=== PATIENT | male | born 1950 | race Caucasian/White ===

== ENCOUNTER → 2019-05-18 | Outpatient (REF) | payer MEDICARE ==
[~2019-05-18] MED LIST: ACET500C PO; AMLO5TAB6 PO; ASPI81TA85 PO; ATOR1TAB21 PO; BENA20TA8 PO; CALC500T60 PO; CHIL5SOL PO; CHLO25TA PO; CIAL5TAB PO; CRES10TA PO; DIGO0.25 PO; DIGO0.253 PO; DILT1CAP6 PO; DULE100A IN; FLOM0.4C39 PO; FLON1SPR; FURO20TA2 PO; LABE300T2 PO; LORATAB PO; METF500T13 PO; METO1TAB33 PO; MM S100C PO; PRAD150C6 PO; PROV108A INH; SILD20TA11 PO; SPIR-10 PO; SYMB16INH INH; TRIA0.1C60 TOP; TRIA1CR80 TOP; VOLT1GEL15 TD
[2019-05-18 15:06] LABS: APPEARANCE, URINE CLEAR (CLEAR); BACTERIA, URINE AUTO NEGATIVE (NEGATIVE); BILIRUBIN, URINE AUTO NEGATIVE (NEGATIVE); BLOOD, URINE BLOOD NEGATIVE (NEGATIVE); COLOR, URINE YELLOW (YELLOW); GLUCOSE, URINE (UA) AUTO NEGATIVE (NEGATIVE); KETONE, URINE AUTO TRACE mg/dL (NEGATIVE); LEUKOCYTE ESTERASE, URINE AUTO NEGATIVE (NEGATIVE); MUCUS, URINE SMALL (NEGATIVE); NITRITE, URINE AUTO NEGATIVE (NEGATIVE); PROTEIN, URINE AUTO NEGATIVE (NEGATIVE); RBC, URINE AUTO 1 /HPF (0-3); SPECIFIC GRAVITY URINE AUTO 1.015 (1.002-1.035); SQUAMOUS EPITHELIAL CELL UR AU 0 /HPF (0-6); UROBILINOGEN, URINE AUTO 0.2 mg/dL (0.0-2.0); WBC, URINE AUTO 1 /HPF (0-3)
== END ==
LOC: M SMT 13:31
PROVIDERS: ATTEND Nurse Practitioner Family
DX: R39.11 Hesitancy of micturition (principal)
CPT/HCPCS: 51798; 81001; 87086; G0463

== ENCOUNTER → 2019-05-29 | Outpatient (CLI) | payer MEDICARE ==
[~2019-05-29] MED LIST changes: +ALBU17IN2 INH; -DIGO0.253 PO; +E-Z-GAS II EFFERVESCENT PACKET (SODIUM BICARB./CITRIC ACID/SIMETHICONE) As Ordered ONE; +E-Z-HD 98% w/w 340GM SUSP BTL As Ordered ONE; +E-Z-PAQUE 96% w/w SUSP 176GM BTL As Ordered ONE; -PROV108A INH
--- NOTE | 2019-05-30 20:10 | REP ---
Examination Requested: Esophagram Barium Swallow Reason For Exam/Comment: Dysphasia Esophagram: The procedure was performed CARISSA Fuentes, under the direct supervision of Dr. Madrid. The images were reviewed with Dr. Madrid. A single PA chest x-ray is submitted as a cytology teacher film. The superior mediastinal structures are midline. The heart size is within normal limits. The lungs are clear. Liquid barium and gas producing granules were given in the erect position as well as liquid barium in the prone oblique position, in order to perform a double contrast esophagram examination. Oral and pharyngeal stages of the examination were unremarkable. Esophageal transport is efficient and there is no esophagitis, stricture, or mucosal ring noted. There is a small hiatal hernia noted. Gastroesophageal reflux was not visualized throughout the course of this exam. Impression: 1. Small hiatal hernia. 0.3 minutes of fluoroscopy time was utilized for this procedure. Some fluoroscopic images are performed with last image hold technology. These images require no additional radiation. Reviewed by CARISSA Valdivia 05/29/2019 03:08 P Electronically Signed by Romulo Madrid MD 05/30/2019 08:02 P
== END ==
LOC: M RAD 09:43
PROVIDERS: ATTEND Nurse Practitioner
DX: R13.10 Dysphagia, unspecified (principal); K44.9 Diaphragmatic hernia without obstruction or gangrene

== ENCOUNTER 2019-06-01 11:29 | Day surgery (SDC) | payer MEDICARE ==
[~2019-06-01] VITALS: Ht 185.4 cm; Wt 96.5 kg
[~2019-06-01 11:29] MED LIST changes: -E-Z-GAS II EFFERVESCENT PACKET (SODIUM BICARB./CITRIC ACID/SIMETHICONE) As Ordered ONE; -E-Z-HD 98% w/w 340GM SUSP BTL As Ordered ONE; -E-Z-PAQUE 96% w/w SUSP 176GM BTL As Ordered ONE; +NS 1,000 ML IV ONE
[2019-06-01] MEDS ORDERED: LIDOCAINE 2% INJ 100 MG/5 ML SDV (FOR ANES.) As Ordered ONE (12:50)
[2019-06-01] MEDS ORDERED: fentaNYL 100 MCG/2 ML INJECTION (J3010) As Ordered ONE (12:50)
[2019-06-01] MEDS ORDERED: PROPOFOL 500 MG/50 ML VIAL As Ordered ONE (12:50)
--- NOTE | 2019-06-01 13:07 | ROOR ---
Patient Name: Jin Negron Procedure Date: 06/01/2019 12:48 PM Date of : 1950 Age: 68 Room: [facility] Gender: Male Note Status: Finalized Procedure: Upper GI endoscopy Indications: Dysphagia Providers: Ignacio Gonzalez Jr, MD Referring MD: JESSE ACOSTA DO Requesting Provider: Medicines: Propofol per Anesthesia Complications: No immediate complications. Procedure: Pre-Anesthesia Assessment: - Prior to the procedure, a History and Physical was performed, and patient medications and allergies were reviewed. The patient is competent. The risks and benefits of the procedure and the sedation options and risks were discussed with the patient. All questions were answered and informed consent was obtained. Patient identification and proposed procedure were verified by the physician and the nurse in the pre-procedure area and in the procedure room. Mental Status Examination: alert and oriented. Airway Examination: normal oropharyngeal airway and neck mobility. Respiratory Examination: clear to auscultation. CV Examination: normal. ASA Grade Assessment: II - A patient with mild systemic disease. After reviewing the risks and benefits, the patient was deemed in satisfactory condition to undergo the procedure. The anesthesia plan was to use moderate sedation / analgesia (conscious sedation). Immediately prior to administration of medications, the patient was re-assessed for adequacy to receive sedatives. The heart rate, respiratory rate, oxygen saturations, blood pressure, adequacy of pulmonary ventilation, and response to care were monitored throughout the procedure. The physical status of the patient was re-assessed after the procedure. The Endoscope was introduced through the mouth, and advanced to the second part of duodenum. The upper GI endoscopy was accomplished without difficulty. The patient tolerated the procedure well. Findings: The upper third of the esophagus, middle third of the esophagus and lower third of the esophagus were normal. Non-severe esophagitis was found at the gastroesophageal junction. Biopsies were taken with a cold forceps for histology. The cardia, gastric fundus and gastric body were normal. A small hiatal hernia was present. Scattered severe inflammation characterized by congestion (edema), erosions, erythema, friability and shallow ulcerations was found in the gastric antrum and in the prepyloric region of the stomach. Biopsies were taken with a cold forceps for histology. Patchy moderately erythematous mucosa and with no stigmata of bleeding was found in the duodenal bulb and in the first portion of the duodenum. The second portion of the duodenum was normal. Impression: - Normal upper third of esophagus, middle third of esophagus and lower third of esophagus. - Non-severe reflux esophagitis. Biopsied. - Normal cardia, gastric fundus and gastric body. - Small hiatal hernia. - Gastritis. Biopsied. - Erythematous duodenopathy. - Normal second portion of the duodenum. Recommendation: - Discharge patient to home (ambulatory). - Return to my office as previously scheduled. Ignacio Gonzalez MD Ignacio Gonzalez Jr, MD 06/01/2019 1:07:21 PM Electronically signed by Ignacio Gonzalez Jr, MD Number of Addenda: 0 Note Initiated On: 06/01/2019 12:48 PM Estimated Blood Loss: Estimated blood loss: none.
[2019-06-01] MEDS ORDERED: PHENYLephrine HCL 500 MCG/5 ML (100MCG/ML) SYRINGE (J2370) As Ordered ONE (13:15)
--- NOTE | 2019-06-01 13:29 | ROOR ---
Patient Name: Jin Negron Procedure Date: 06/01/2019 12:50 PM Date of : 1950 Age: 68 Room: [facility] Gender: Male Note Status: Finalized Procedure: Colonoscopy Indications: High risk colon cancer surveillance: Personal history of colonic polyps Providers: Ignacio Gonzalez Jr, MD Referring MD: JESSE ACOSTA DO Requesting Provider: Medicines: Propofol per Anesthesia Complications: No immediate complications. Procedure: Pre-Anesthesia Assessment: - Prior to the procedure, a History and Physical was performed, and patient medications and allergies were reviewed. The patient is competent. The risks and benefits of the procedure and the sedation options and risks were discussed with the patient. All questions were answered and informed consent was obtained. Patient identification and proposed procedure were verified by the physician and the nurse in the pre-procedure area and in the procedure room. Mental Status Examination: alert and oriented. Airway Examination: normal oropharyngeal airway and neck mobility. Respiratory Examination: clear to auscultation. CV Examination: normal. ASA Grade Assessment: II - A patient with mild systemic disease. After reviewing the risks and benefits, the patient was deemed in satisfactory condition to undergo the procedure. The anesthesia plan was to use moderate sedation / analgesia (conscious sedation). Immediately prior to administration of medications, the patient was re-assessed for adequacy to receive sedatives. The heart rate, respiratory rate, oxygen saturations, blood pressure, adequacy of pulmonary ventilation, and response to care were monitored throughout the procedure. The physical status of the patient was re-assessed after the procedure. The Colonoscope was introduced through the anus and advanced to the cecum, identified by appendiceal orifice and ileocecal valve. The colonoscopy was performed without difficulty. The patient tolerated the procedure well. The quality of the bowel preparation was fair and poor. Findings: Many small and large-mouthed diverticula were found in the sigmoid colon. Non-bleeding external and internal hemorrhoids were found during retroflexion and during endoscopy. The hemorrhoids were Grade II (internal hemorrhoids that prolapse but reduce spontaneously) and Grade III (internal hemorrhoids that prolapse but require manual reduction). The rectum, recto-sigmoid colon, descending colon, transverse colon, ascending colon, cecum and ileocecal valve appeared normal. Impression: - Preparation of the colon was fair. - Preparation of the colon was poor. - Diverticulosis in the sigmoid colon. - Non-bleeding external and internal hemorrhoids. - The rectum, recto-sigmoid colon, descending colon, transverse colon, ascending colon, cecum and ileocecal valve are normal. - No specimens collected. Recommendation: - Discharge patient to home (ambulatory). - Repeat colonoscopy in 5 years for surveillance. Ignacio Gonzalez MD Ignacio Gonzalez Jr, MD 06/01/2019 1:29:18 PM Electronically signed by Ignacio Gonzalez Jr, MD Number of Addenda: 0 Note Initiated On: 06/01/2019 12:50 PM Estimated Blood Loss: Estimated blood loss: none.
[2019-06-01 14:16] VITALS: BP 111/65
== END 2019-06-01 14:10 | disposition home or self-care (01) ==
LOC: M OPP 11:29
PROVIDERS: ATTEND Surgery
DX: Z12.11 Encounter for screening for malignant neoplasm of colon (principal); Z86.010 Personal history of colon polyps; K64.1 Second degree hemorrhoids; K64.2 Third degree hemorrhoids; K57.30 Diverticulosis of large intestine without perforation or abscess without bleeding; R13.10 Dysphagia, unspecified; K29.70 Gastritis, unspecified, without bleeding; K21.0 Gastro-esophageal reflux disease with esophagitis; K44.9 Diaphragmatic hernia without obstruction or gangrene; K31.89 Other diseases of stomach and duodenum; M19.90 Unspecified osteoarthritis, unspecified site; I48.91 Unspecified atrial fibrillation; I34.0 Nonrheumatic mitral (valve) insufficiency; J45.909 Unspecified asthma, uncomplicated; G47.30 Sleep apnea, unspecified; J44.9 Chronic obstructive pulmonary disease, unspecified; R00.8 Other abnormalities of heart beat; I10 Essential (primary) hypertension; E78.5 Hyperlipidemia, unspecified; E11.9 Type 2 diabetes mellitus without complications; R23.3 Spontaneous ecchymoses; R06.83 Snoring; N40.1 Benign prostatic hyperplasia with lower urinary tract symptoms; Z96.651 Presence of right artificial knee joint; Z87.891 Personal history of nicotine dependence; Z79.82 Long term (current) use of aspirin; Z79.899 Other long term (current) drug therapy
CPT/HCPCS: 43239; 88305; G0105; J2370; J3010

== ENCOUNTER → 2020-05-01 | Outpatient (CLI) | payer MEDICARE ==
[~2020-05-01] MED LIST changes: -ALBU17IN2 INH; +AMLO1TAB24 PO; -AMLO5TAB6 PO; -ASPI81TA85 PO; +ASPI81TA86 PO; +DIGO0.253 PO; -NS 1,000 ML IV ONE; +PROV108A INH
--- NOTE | 2020-05-01 10:30 | PFTRPT ---
Visit Date: 05/01/2020 Referring Doctor: NADIA BACON MD Height: 73.00 Inches Weight: 240.00 Lbs BSA: 2.33 Diagnosis: R06.09 Pre and postbronchodilator study of excellent technical quality. Forced vital capacity reduced. FEV1 in proportion. Obstructive index is therefore normal. Expiratory limb of the flow volume loop does suggest some degree of flow rate limitation however. No significant bronchodilator response is identified. Small airways dysfunction is identified. Total lung capacity normal. Residual volume suggests air trapping. Diffusing capacity although mildly reduced, is appropriate for alveolar volume. Hemoglobin acceptable at 14.2. Airways resistance and conductance are normal. IMPRESSION: Suspect at least some degree of obstructive ventilatory impairment with air trapping. Pleased correlate clinically. MTDD
== END ==
LOC: M CARPUL 09:30
PROVIDERS: ATTEND Internal Medicine Cardiovascular Disease
DX: R06.09 Other forms of dyspnea (principal)

== ENCOUNTER → 2025-07-13 | Outpatient (CLI) | payer MEDICARE ==
[~2025-07-13] MED LIST changes: +ALBU6.7H6 INH; +BENA-8 PO; -BENA20TA8 PO; -DILT1CAP6 PO; +DILT240C42 PO; -DULE100A IN; -FLOM0.4C39 PO; -LABE300T2 PO; +LABE300T28 PO; +MOME13HF8 IN; -PROV108A INH; -SILD20TA11 PO; +SILD20TA64 PO; +TAMS-18 PO
== END ==
LOC: M RAD 13:34
PROVIDERS: ATTEND Internal Medicine Nephrology
DX: N18.31 Chronic kidney disease, stage 3a (principal)